=== PATIENT | female | born 1990 | race Two or more races ===

== ENCOUNTER 2023-11-06 05:06 | Emergency (ER) | payer OTHER ==
[~2023-11-06] VITALS: Ht 160 cm; Wt 60.0 kg
[2023-11-06 07:44] VITALS: BP 118/85; PULSE 86; RESP 18; TEMP 98.5; O2SAT 99
== END 2023-11-06 07:45 | disposition left against medical advice (07) ==
LOC: ER 05:06
DX: S69.91XA Unspecified injury of right wrist, hand and finger(s), initial encounter (principal); S99.911A Unspecified injury of right ankle, initial encounter; M79.671 Pain in right foot; M79.672 Pain in left foot; Z53.21 Procedure and treatment not carried out due to patient leaving prior to being seen by health care provider; Y04.2XXA Assault by strike against or bumped into by another person, initial encounter; Y93.89 Activity, other specified; Y92.89 Other specified places as the place of occurrence of the external cause; Y99.8 Other external cause status

== ENCOUNTER 2024-07-31 23:12 | Emergency (ER) | payer OTHER | END 2024-08-01 00:35 | disposition left against medical advice (07) | LOC: ER 23:12 | DX: G47.00 Insomnia, unspecified (principal); Z53.21 Procedure and treatment not carried out due to patient leaving prior to being seen by health care provider ==